=== PATIENT | female | born 1995 | race Caucasian/White ===

== ENCOUNTER 2018-09-08 20:49 | Emergency (ER) | payer MEDICAID ==
[~2018-09-08] VITALS: Ht 180.3 cm; Wt 71.0 kg
--- NOTE | 2018-09-08 21:25 | NUR ---
THIS IS A 23 Y/O FEMALE THAT ARRIVES TO THE ED WITH C/O RESP SYMPTOMS AND ABD CRAMPING. PT REPORTS THAT SHE HAS NOT BEEN FEELING THE BABY MOVE MUCH SHE NORMALLY DOES. PT REPORTS NO VAGINAL DC. PT RESTING IN BED AND APPEARS COMFORTABELY. AWAITING FURTHER ORDERS.
[2018-09-08] MEDS ORDERED: SODIUM CHLORIDE 0.9% 1,000ML IVBOLUS ONE (21:30)
[2018-09-08] MEDS ORDERED: ACETAMINOPHEN 500 MG TABLET PO ONE (21:30)
[2018-09-08 22:10] LABS: BASOPHILS # (AUTO) 0.01 x10^3/uL (0-0.1); BASOPHILS % (AUTO) 0 % (0-1); EOSINOPHILS # (AUTO) 0.01 x10^3/uL (0-0.4); EOSINOPHILS % (AUTO) 0 % (1-7); LYMPHOCYTES # (AUTO) 1.33 x10^3/uL (1-3.4); LYMPHOCYTES % (AUTO) 24 % (22-44); MD NO; MEAN CORPUSCULAR HEMOGLOBIN 28.6 pg (27.0-34.8); MEAN CORPUSCULAR HGB CONC 33.6 g/dL (32.4-35.8); MEAN CORPUSCULAR VOLUME 85.3 fL (80-100); MEAN PLATELET VOLUME 9.4 fL (7.4-10.4); MONOCYTES # (AUTO) 0.63 x10^3/uL (0.2-0.8); MONOCYTES % (AUTO) 11 % (2-9); NEUTROPHILS # (AUTO) 3.61 x10^3/uL (1.8-6.8); NEUTROPHILS % (AUTO) 65 % (42-75); PLATELET COUNT 210 x10^3/uL (130-400); RED BLOOD COUNT 3.95 x10^6/uL (3.82-5.3); RED CELL DISTRIBUTION WIDTH 13.7 % (9.6-15.2)
[2018-09-08 22:23] LABS: ALANINE AMINOTRANSFERASE 12 U/L (12-78); ANION GAP 8 mmol/L (5-15); CALCIUM 7.8 mg/dL (8.5-10.1); CHLORIDE 109 mmol/L (98-107); CREATININE 0.57 mg/dL (0.55-1.02)
[2018-09-08 22:26] LABS: ALKALINE PHOSPHATASE 63 U/L (45-117); BILIRUBIN,TOTAL 0.4 mg/dL (0.2-1.0); TOTAL PROTEIN 6.2 g/dL (6.4-8.2)
--- NOTE | 2018-09-08 23:25 | NUR ---
pt refused cxr, pt ua sent to lab.
[2018-09-08 23:30] LABS: CULTURE INDICATED? YES; MICROSCOPIC INDICATED
[2018-09-08 23:37] VITALS: BP 124/84
--- NOTE | 2018-09-09 00:03 | NUR ---
Patient/Caregiver given discharge instructions and they have confirmed that they understand the instructions. Patient ambulatory with steady gait.
== END 2018-09-09 00:20 | disposition home or self-care (01) ==
LOC: ED 09-09 00:15
DX: O26.892 Other specified pregnancy related conditions, second trimester (principal); J02.9 Acute pharyngitis, unspecified; Z3A.17 17 weeks gestation of pregnancy
CPT/HCPCS: 36415; 76815; 80053; 81001; 85025; 87086; 99284

== ENCOUNTER 2018-09-22 13:05 | Emergency (ER) | payer MEDICAID ==
[~2018-09-22] VITALS: Ht 180.3 cm; Wt 72.3 kg
[2018-09-22 13:41] LABS: CULTURE INDICATED? YES; MICROSCOPIC INDICATED
[2018-09-22 15:17] VITALS: BP 110/68
[2018-09-22 15:36] LABS: BASOPHILS # (AUTO) 0.02 x10^3/uL (0-0.1); BASOPHILS % (AUTO) 0 % (0-1); EOSINOPHILS % (AUTO) 0 % (1-7); LYMPHOCYTES # (AUTO) 1.71 x10^3/uL (1-3.4); LYMPHOCYTES % (AUTO) 24 % (22-44); MD NO; MEAN CORPUSCULAR HEMOGLOBIN 28.5 pg (27.0-34.8); MEAN CORPUSCULAR HGB CONC 33.2 g/dL (32.4-35.8); MEAN CORPUSCULAR VOLUME 85.9 fL (80-100); MEAN PLATELET VOLUME 9.7 fL (7.4-10.4); MONOCYTES # (AUTO) 0.44 x10^3/uL (0.2-0.8); MONOCYTES % (AUTO) 6 % (2-9); NEUTROPHILS # (AUTO) 5.01 x10^3/uL (1.8-6.8); NEUTROPHILS % (AUTO) 70 % (42-75); PLATELET COUNT 236 x10^3/uL (130-400); RED BLOOD COUNT 4.43 x10^6/uL (3.82-5.3); RED CELL DISTRIBUTION WIDTH 14.3 % (9.6-15.2)
[2018-09-22 15:38] LABS: ALBUMIN 3.2 g/dL (3.4-5.0); ANION GAP 8 mmol/L (5-15); CALCIUM 7.9 mg/dL (8.5-10.1); CHLORIDE 106 mmol/L (98-107)
[2018-09-22 15:39] LABS: INTERNATIONAL NORMALIZED RATIO 0.92 (0.93-1.1); PROTHROMBIN TIME 9.7 Seconds (9.6-11.5)
[2018-09-22 15:41] LABS: ALANINE AMINOTRANSFERASE 14 U/L (12-78); ALKALINE PHOSPHATASE 65 U/L (45-117); BILIRUBIN,TOTAL 0.6 mg/dL (0.2-1.0); CREATININE 0.59 mg/dL (0.55-1.02); TOTAL PROTEIN 6.7 g/dL (6.4-8.2)
--- NOTE | 2018-09-22 17:16 | NUR ---
PT TO ROOM FROM LOBBY.
--- NOTE | 2018-09-22 17:54 | NUR ---
TASK RN: DC EDUCATION PROVIDED, PT DEMONSTRATES UNDERSTANDING. PT AMBULATED STEADILY TO DC WITH RN
== END 2018-09-22 17:56 | disposition home or self-care (01) ==
LOC: ED 17:50
DX: O26.891 Other specified pregnancy related conditions, first trimester (principal); S09.8XXA Other specified injuries of head, initial encounter; Z3A.19 19 weeks gestation of pregnancy; R10.31 Right lower quadrant pain; R10.32 Left lower quadrant pain
CPT/HCPCS: 36415; 76815; 80053; 81001; 85025; 85610; 87086; 99284

== ENCOUNTER 2018-09-28 19:55 | Outpatient (CLI) | payer MEDICAID ==
[2018-09-28 21:39] LABS: MICROSCOPIC INDICATED
[2018-09-28 22:30] LABS: CLUE CELLS NONE SEEN (NONE SEEN); WET PREP WBCS FEW (FEW)
== END 2018-09-28 23:05 | disposition home or self-care (01) ==
LOC: LDOP 19:55
PROVIDERS: ATTEND Student in an Organized Health Care Education/Training Program
DX: O99.89 Other specified diseases and conditions complicating pregnancy, childbirth and the puerperium (principal); M54.9 Dorsalgia, unspecified; O26.892 Other specified pregnancy related conditions, second trimester; N89.8 Other specified noninflammatory disorders of vagina; O23.42 Unspecified infection of urinary tract in pregnancy, second trimester; Z3A.20 20 weeks gestation of pregnancy
CPT/HCPCS: 81001; 87086; 87210; 87491; 87591; 87808; 99211; G0463

== ENCOUNTER 2018-10-19 10:05 | Outpatient (CLI) | payer MEDICAID ==
[~2018-10-19] VITALS: Ht 180.3 cm; Wt 85.0 kg
[2018-10-19 11:04] VITALS: BP 109/63
[2018-10-19 11:18] LABS: MICROSCOPIC INDICATED
[2018-10-19 13:09] LABS: AMPHETAMINE SCREEN, URINE Negative (Negative); BARBITURATE SCREEN, URINE Negative (Negative); BENZODIAZEPINE SCREEN, URINE Negative (Negative); CANNABINOID SCREEN, URINE Negative (Negative); COCAINE SCREEN, URINE Negative (Negative); METHADONE SCREEN, URINE Negative (Negative); OPIATE SCREEN, URINE Negative (Negative)
== END 2018-10-19 12:03 | disposition home or self-care (01) ==
LOC: LDOP 10:05
PROVIDERS: ATTEND Obstetrics & Gynecology
DX: O36.8120 Decreased fetal movements, second trimester, not applicable or unspecified (principal); Z3A.23 23 weeks gestation of pregnancy
CPT/HCPCS: 80307; 81001; 87086; 99211; G0463

== ENCOUNTER 2018-11-01 11:51 | Emergency (ER) | payer MEDICAID ==
[~2018-11-01] VITALS: Ht 182.9 cm; Wt 77.3 kg
[2018-11-01 13:04] LABS: MICROSCOPIC AUTO
[2018-11-01] MEDS ORDERED: SODIUM CHLORIDE 0.9% 1,000 ML IV ONE (13:14)
--- NOTE | 2018-11-01 13:24 | NUR ---
maternal child sup called to run strip on baby at Dr. Kelly request
[2018-11-01] MEDS ORDERED: SODIUM CHLORIDE FLUSH 10ML SYR IVF ONE (13:30)
[2018-11-01] MEDS ORDERED: ONDANSETRON 2MG/ML, 2ML IVPush ONE (13:30)
[2018-11-01] MEDS ORDERED: SODIUM CHLORIDE 0.9% 1,000ML IVBOLUS ONE (13:30)
--- NOTE | 2018-11-01 13:38 | NUR ---
Pt in bed, IV started, fluids infusing without issue. Pt denies any further needs or concerns at this time.
[2018-11-01 13:48] LABS: BASOPHILS # (AUTO) 0.01 x10^3/uL (0-0.1); BASOPHILS % (AUTO) 0 % (0-1); EOSINOPHILS # (AUTO) 0.02 x10^3/uL (0-0.4); EOSINOPHILS % (AUTO) 0 % (1-7); LYMPHOCYTES # (AUTO) 1.52 x10^3/uL (1-3.4); LYMPHOCYTES % (AUTO) 17 % (22-44); MD NO; MEAN CORPUSCULAR HEMOGLOBIN 28.3 pg (27.0-34.8); MEAN CORPUSCULAR HGB CONC 32.5 g/dL (32.4-35.8); MEAN CORPUSCULAR VOLUME 86.9 fL (80-100); MEAN PLATELET VOLUME 9.4 fL (7.4-10.4); MONOCYTES # (AUTO) 0.57 x10^3/uL (0.2-0.8); MONOCYTES % (AUTO) 6 % (2-9); NEUTROPHILS # (AUTO) 6.95 x10^3/uL (1.8-6.8); NEUTROPHILS % (AUTO) 77 % (42-75); PLATELET COUNT 204 x10^3/uL (130-400); RED BLOOD COUNT 3.92 x10^6/uL (3.82-5.3); RED CELL DISTRIBUTION WIDTH 14.1 % (9.6-15.2)
[2018-11-01 13:56] LABS: ALANINE AMINOTRANSFERASE 20 U/L (12-78); ANION GAP 8 mmol/L (5-15); CALCIUM 8.2 mg/dL (8.5-10.1); CHLORIDE 108 mmol/L (98-107); CREATININE 0.51 mg/dL (0.55-1.02)
[2018-11-01 13:58] LABS: ALKALINE PHOSPHATASE 62 U/L (45-117); BILIRUBIN,TOTAL 0.5 mg/dL (0.2-1.0); TOTAL PROTEIN 6.4 g/dL (6.4-8.2)
--- NOTE | 2018-11-01 14:11 | NUR ---
OB at bedside. Urine collected and sent. Pt denies any needs or concerns at this time.
--- NOTE | 2018-11-01 14:53 | NUR ---
Pt resting in bed, provided with small snack per request. Pt denies any further concerns or needs at this time.
--- NOTE | 2018-11-01 14:59 | NUR ---
Pt states she doesn't want Zofran at this time.
[2018-11-01 15:22] VITALS: BP 100/61
--- NOTE | 2018-11-01 15:23 | NUR ---
D/C INSTRUCTIONS, MEDS & F/U APPT RV'WD WITH PT, SHE VERBALIZES UNDERSTANDING. RX GIVEN X1. PT AMBULATED OUT OF ED WITHOUT DIFFICULTY.
== END 2018-11-01 15:26 | disposition home or self-care (01) ==
LOC: ED 13:37
DX: O23.12 Infections of bladder in pregnancy, second trimester (principal); O21.9 Vomiting of pregnancy, unspecified; E86.0 Dehydration; R19.7 Diarrhea, unspecified; Z3A.25 25 weeks gestation of pregnancy
CPT/HCPCS: 36415; 80053; 81001; 83690; 85025; 96360; 96361; 99283; J7030

== ENCOUNTER 2018-11-06 19:52 | Outpatient (CLI) | payer MEDICAID ==
[~2018-11-06] VITALS: Ht 182.9 cm; Wt 110.0 kg
[2018-11-06 20:29] VITALS: BP 105/61
== END 2018-11-06 22:25 | disposition home or self-care (01) ==
LOC: LDOP 19:52
PROVIDERS: ATTEND Obstetrics & Gynecology
DX: O32.1XX0 Maternal care for breech presentation, not applicable or unspecified (principal); O62.9 Abnormality of forces of labor, unspecified; Z3A.25 25 weeks gestation of pregnancy
CPT/HCPCS: 76817; 81001; 87086; 99211; G0463

== ENCOUNTER 2019-03-09 22:58 | Emergency (ER) | payer MEDICAID ==
[~2019-03-09] VITALS: Ht 182.9 cm; Wt 80.4 kg
--- NOTE | 2019-03-09 23:08 | NUR ---
RATE QUOTING OPERATOR: REQUESTED URINE/STOOL SAMPLES FROM PT. SHE STATES "HONESTLY THERE IS NOTHING LEFT, I WON'T BE ABLE TO".
[2019-03-09] MEDS ORDERED: SODIUM CHLORIDE 0.9% 1,000ML IVBOLUS ONE (23:30)
[2019-03-09] MEDS ORDERED: ONDANSETRON 2MG/ML, 2ML IVPush ONE (23:30)
[2019-03-09] MEDS ORDERED: ONDANSETRON 2MG/ML, 2ML ONE (23:33)
[2019-03-09 23:35] LABS: BASOPHILS # (AUTO) 0.01 x10^3/uL (0-0.1); BASOPHILS % (AUTO) 0 % (0-1); EOSINOPHILS # (AUTO) 0.08 x10^3/uL (0-0.4); EOSINOPHILS % (AUTO) 1 % (1-7); LYMPHOCYTES # (AUTO) 0.75 x10^3/uL (1-3.4); LYMPHOCYTES % (AUTO) 5 % (22-44); MD NO; MEAN CORPUSCULAR HEMOGLOBIN 27.1 pg (27.0-34.8); MEAN CORPUSCULAR HGB CONC 32.4 g/dL (32.4-35.8); MEAN CORPUSCULAR VOLUME 83.7 fL (80-100); MEAN PLATELET VOLUME 9.8 fL (7.4-10.4); MONOCYTES % (AUTO) 5 % (2-9); NEUTROPHILS # (AUTO) 12.34 x10^3/uL (1.8-6.8); NEUTROPHILS % (AUTO) 89 % (42-75); PLATELET COUNT 230 x10^3/uL (130-400); RED BLOOD COUNT 5.09 x10^6/uL (3.82-5.3); RED CELL DISTRIBUTION WIDTH 13.4 % (9.6-15.2)
[2019-03-09 23:48] LABS: ALANINE AMINOTRANSFERASE 31 U/L (12-78); ALBUMIN 3.8 g/dL (3.4-5.0); ANION GAP 8 mmol/L (5-15); CALCIUM 8.9 mg/dL (8.5-10.1); CHLORIDE 108 mmol/L (98-107); CREATININE 0.69 mg/dL (0.55-1.02)
[2019-03-09 23:52] LABS: ALKALINE PHOSPHATASE 107 U/L (45-117); BILIRUBIN,TOTAL 0.8 mg/dL (0.2-1.0); TOTAL PROTEIN 7.7 g/dL (6.4-8.2)
[2019-03-10 00:22] VITALS: BP 143/82
== END 2019-03-10 00:24 | disposition home or self-care (01) ==
LOC: ED 23:33
DX: A09 Infectious gastroenteritis and colitis, unspecified (principal); R11.2 Nausea with vomiting, unspecified; F17.200 Nicotine dependence, unspecified, uncomplicated
CPT/HCPCS: 36415; 80053; 83690; 84703; 85025; 96374; 99283; J2405; J7030; 96361

== ENCOUNTER 2019-04-13 14:58 | Emergency (ER) | payer MEDICAID ==
[~2019-04-13] VITALS: Ht 182.9 cm; Wt 83.4 kg
[2019-04-13 15:01] VITALS: BP 121/77
--- NOTE | 2019-04-13 15:21 | NUR ---
PT CALLED FOR ROOM PLACEMENT, ADVISED BY REGISTRATION PT LEFT, REFUSES TO SIGN AMA.
== END 2019-04-13 15:40 | disposition left against medical advice (07) ==
LOC: ED 15:30
DX: R11.2 Nausea with vomiting, unspecified (principal); Z53.21 Procedure and treatment not carried out due to patient leaving prior to being seen by health care provider

== ENCOUNTER 2019-10-05 17:48 | Emergency (ER) | payer MEDICAID ==
[~2019-10-05] VITALS: Ht 182.9 cm; Wt 82.4 kg
[2019-10-05 17:53] VITALS: BP 116/69
--- NOTE | 2019-10-05 18:21 | NUR ---
URINE COLLECTED FROM PATIENT AND SENT TO LAB.
[2019-10-05 19:05] LABS: MICROSCOPIC INDICATED
[2019-10-05 19:29] LABS: ANION GAP 6 mmol/L (5-15); CALCIUM 8.2 mg/dL (8.5-10.1); CHLORIDE 106 mmol/L (98-107); CREATININE 0.71 mg/dL (0.55-1.02)
[2019-10-05 19:30] LABS: BASOPHILS # (AUTO) 0.03 x10^3/uL (0-0.1); BASOPHILS % (AUTO) 1 % (0-1); EOSINOPHILS # (AUTO) 0.03 x10^3/uL (0-0.4); EOSINOPHILS % (AUTO) 1 % (1-7); LYMPHOCYTES # (AUTO) 1.98 x10^3/uL (1-3.4); LYMPHOCYTES % (AUTO) 27 % (22-44); MD NO; MEAN CORPUSCULAR HEMOGLOBIN 27.1 pg (27.0-34.8); MEAN CORPUSCULAR HGB CONC 33.4 g/dL (32.4-35.8); MEAN CORPUSCULAR VOLUME 81.3 fL (80-100); MEAN PLATELET VOLUME 9.8 fL (7.4-10.4); MONOCYTES # (AUTO) 0.42 x10^3/uL (0.2-0.8); MONOCYTES % (AUTO) 6 % (2-9); NEUTROPHILS # (AUTO) 4.78 x10^3/uL (1.8-6.8); NEUTROPHILS % (AUTO) 66 % (42-75); PLATELET COUNT 222 x10^3/uL (130-400); RED BLOOD COUNT 4.54 x10^6/uL (3.82-5.3); RED CELL DISTRIBUTION WIDTH 14.5 % (9.6-15.2)
--- NOTE | 2019-10-05 19:51 | NUR ---
PT CAME IN CO OF DIZZINESS AND VERTIGO. PT REPORTS SHE IS 15 WEEKS . DENIES BLEEDING OR VAGINAL DISCHARGE.
[2019-10-05] MEDS ORDERED: NITROFURANTOIN (MACROBID) 100 MG CAPSULE ONE (20:06)
[2019-10-05] MEDS ORDERED: POTASSIUM CHLORIDE 20 MEQ TAB.ER.PRT ONE (20:06)
[2019-10-05] MEDS ORDERED: NITROFURANTOIN (MACROBID) 100 MG CAPSULE PO ONE (20:30)
[2019-10-05] MEDS ORDERED: POTASSIUM CHLORIDE 20 MEQ TAB.ER.PRT PO ONE (20:30)
== END 2019-10-05 20:30 | disposition home or self-care (01) ==
LOC: ED 20:25
DX: O23.12 Infections of bladder in pregnancy, second trimester (principal); R51 Headache; R42 Dizziness and giddiness; E87.6 Hypokalemia; R94.31 Abnormal electrocardiogram [ECG] [EKG]; Z90.89 Acquired absence of other organs; Z3A.15 15 weeks gestation of pregnancy
CPT/HCPCS: 36415; 80048; 81001; 85025; 87086; 93005; 99284

== ENCOUNTER 2019-11-18 18:06 | Emergency (ER) | payer MEDICAID ==
[~2019-11-18] VITALS: Ht 182.9 cm; Wt 85.0 kg
[2019-11-18 18:13] VITALS: BP 127/75
--- NOTE | 2019-11-18 18:20 | NUR ---
MINE ENGINEERING SUPERINTENDENT: CALLED L&D. THEY WILL COME LISTEN TO HEART TONES WHEN ABLE PER MONI NG.
--- NOTE | 2019-11-18 18:20 | NUR ---
WARD SERVICE SUPERVISOR: SPOKE W/ SPINDLE REPAIRER REGARDING PTS STATUS, PT IS ONLY EXPERIENCING RESP SYMPTOMS, OK TO STAY IN ED. NGUYỄN MONTENEGRO WILL VERIFY W/ ED MDS.
--- NOTE | 2019-11-18 18:31 | NUR ---
CONTACT WITH PT, 24 YR OLD FEMALE HERE WITH C/O "I HAVENT HAD A FEVER OR COUGH. I HAVE A REALLY RUNNY NOSE. A LOT OF PAIN IN MY SINUSES AND MY THROAT BEGAN TODAY. DIARRHEA FOR APPROX 3 DAYS. NO DIARRHEA TODAY I HAVENT REALLY EATEN TODAY. I HAVE BEEN TOO AFRAID SINCE I JUST STARTED A NEW JOB"
--- NOTE | 2019-11-18 18:42 | NUR ---
SYDNEY JUVENILE JUSTICE SPECIALIST AT BEDSIDE TO EVAL PT
--- NOTE | 2019-11-18 18:54 | NUR ---
REPORT FROM GERONIMO MONTENEGRO ASSUMING CARE OF PT AT THIS TIME
--- NOTE | 2019-11-18 18:55 | NUR ---
REPORT TO VALDO Aguilar RN.
--- NOTE | 2019-11-18 19:40 | NUR ---
HR 140 AND STRONG.
== END 2019-11-18 21:00 | disposition home or self-care (01) ==
LOC: ED 20:25
DX: O26.892 Other specified pregnancy related conditions, second trimester (principal); Z20.828 Contact with and (suspected) exposure to other viral communicable diseases; B34.9 Viral infection, unspecified; J00 Acute nasopharyngitis [common cold]; R19.7 Diarrhea, unspecified; R50.9 Fever, unspecified; R11.0 Nausea; Z90.89 Acquired absence of other organs; Z3A.22 22 weeks gestation of pregnancy
CPT/HCPCS: 36415; 87635; 99283

== ENCOUNTER 2020-01-04 16:34 | Outpatient (CLI) | payer MEDICAID ==
[~2020-01-04] VITALS: Ht 182.9 cm; Wt 86.4 kg
[2020-01-04 16:54] VITALS: BP 109/55
[2020-01-04 17:21] LABS: MICROSCOPIC INDICATED
[2020-01-04] MEDS ORDERED: NITR100C56 PO (17:48)
[2020-01-04 17:57] LABS: AMPHETAMINE SCREEN, URINE Negative (Negative); BARBITURATE SCREEN, URINE Negative (Negative); BENZODIAZEPINE SCREEN, URINE Negative (Negative); CANNABINOID SCREEN, URINE Negative (Negative); COCAINE SCREEN, URINE Negative (Negative); METHADONE SCREEN, URINE Negative (Negative); OPIATE SCREEN, URINE Negative (Negative)
== END 2020-01-04 18:11 | disposition home or self-care (01) ==
LOC: LDOP 16:34
PROVIDERS: ATTEND Obstetrics & Gynecology
DX: O26.893 Other specified pregnancy related conditions, third trimester (principal); R10.9 Unspecified abdominal pain; Z3A.29 29 weeks gestation of pregnancy
CPT/HCPCS: 59025; 80307; 81001; 87086